=== PATIENT | male | born 1995 | race Caucasian/White ===

== ENCOUNTER 2019-08-13 21:08 | Emergency (ER) | payer OTHER ==
[2019-08-13 21:13] VITALS: BP 135/3; PULSE 73; TEMP 97.8
--- NOTE | 2019-08-13 21:39 | ED ---
General Adult HPI - General Chief complaint: Upper Respiratory Infection Stated complaint: congestion/sinus problems Time Seen by Provider: 08/13/19 21:16 Source: patient Mode of arrival: ambulatory Limitations: no limitations - History of Present Illness Initial comments: Patient is 23-year-old male presenting to the emergency department with Multiple chief complaints. Patient is complaining of a cold sore on her left side of his mouth which has been persistent for several weeks and will not resolve. States he attempted using Abreva with minimal improvement. Patient also complaining of some abdominal discomfort, not pain. He states he does have history of GERD and does drink lots of pop and coffee frequently. He also reports eating late at night typically. Patient is also complaining of an intermittent headache that comes and goes. Patient is also complaining of some sinus congestion that has been persistent over the last 2 weeks. Denies any sinus tenderness. Denies taking medication to alleviate his symptoms. States does not have a primary care physician because he does not have time to establish care. Denies any chest pain shortness of breath cough fevers night sweats or chills. Denies any nausea or vomiting or diarrhea. Denies any testicular pain, swelling, penile pain or swelling. Denies hematuria, hematochezia or melena. Denies sore throat or otalgia. - Related Data Previous Rx's Medication Instructions Recorded Acyclovir [Zovirax] 800 mg PO TID #28 tab 08/13/19 Omeprazole [PriLOSEC] 20 mg PO AC-BRKFST #14 cap 08/13/19 Allergies Allergy/AdvReac Type Severity Reaction Status Date / Time No Known Allergies Allergy Verified 08/13/19 21:13 Review of Systems ROS Statement: Those systems with pertinent positive or pertinent negative responses have been documented in the HPI. ROS Other: All systems not noted in ROS Statement are negative. Past Medical History Past Medical History: No Reported History History of Any Multi-Drug Resistant Organisms: None Reported Past Surgical History: No Surgical Hx Reported Past Psychological History: Anxiety, Depression Smoking Status: Never smoker Past Alcohol Use History: None Reported Past Drug Use History: None Reported General Exam Limitations: no limitations General appearance: alert, in no apparent distress Head exam: Present: atraumatic, normocephalic, normal inspection Eye exam: Present: normal appearance Pupils: Present: normal accommodation ENT exam: Present: normal exam, normal oropharynx (Cold sore on the left corner of the mouth.), mucous membranes moist, TM's normal bilaterally, normal external ear exam Neck exam: Present: normal inspection, full ROM Respiratory exam: Present: normal lung sounds bilaterally Cardiovascular Exam: Present: regular rate, normal rhythm, normal heart sounds GI/Abdominal exam: Present: soft, normal bowel sounds. Absent: distended, tenderness, guarding, rebound, rigid, diminished bowel sounds, hyperactive bowel sounds, hypoactive bowel sounds, organomegaly, mass Extremities exam: Present: normal inspection, full ROM Back exam: Present: normal inspection, full ROM Neurological exam: Present: alert, oriented X3 Psychiatric exam: Present: normal affect, normal mood Skin exam: Present: warm, dry, intact, normal color Course Vital Signs 08/13/19 08/13/19 21:10 21:30 Temperature 97.8 F Pulse Rate 73 Respiratory 20 18 Rate Blood Pressure 135/3 O2 Sat by Pulse 100 Oximetry Medical Decision Making - Medical Decision Making Patient is a 23-year-old male presenting to emergency department with multiple chief complaints. Patient is complaining with sore throat. It does appear to be herpes simplex. Patient has had the lesion there for approximately 2-3 weeks. Patient will be started on acyclovir. Patient is also complaining of some abdominal discomfort after he eats food. Does have history of GERD. Patient does eat very late at night and drinks lots of coffee and pop. Patient advised to avoid any of those habits. He was also prescribed omeprazole in order to help alleviate some of the symptoms. ENT examination is unremarkable. Patient does not have any sinus tenderness. Low suspicion for sinusitis. Patient advised to use [id number] decongestants. Patient advised to establish a relationship with a primary care physician which will be able to manage his chronic conditions better. Return parameters were thoroughly discussed with patient is a worsening and agreeable. Case discussed with physician. Disposition Clinical Impression: Herpes simplex, Abdominal discomfort Disposition: HOME SELF-CARE Condition: Stable Additional Instructions: Take prescribed medication as directed. Return to emergency department if symptoms worsen. Prescriptions: Omeprazole [PriLOSEC] 20 mg PO AC-BRKFST #14 cap Acyclovir [Zovirax] 800 mg PO TID #28 tab Is patient prescribed a controlled substance at d/c from ED?: No Referrals: None,Stated [Primary Care Provider] - 1-2 days Time of Disposition: 21:39
[2019-08-13 21:41] VITALS: RESP 18
== END 2019-08-13 22:39 | disposition home or self-care (01) ==
LOC: EC 21:08
DX: B00.9 Herpesviral infection, unspecified (principal); R10.9 Unspecified abdominal pain; K21.9 Gastro-esophageal reflux disease without esophagitis; R51 Headache; R09.81 Nasal congestion
CPT/HCPCS: 99283

== ENCOUNTER 2019-10-15 10:13 | Emergency (ER) | payer OTHER ==
[2019-10-15] MEDS ORDERED: MORPHINE SULFATE 4 MG/ML SYRINGE IV STA (10:29)
[2019-10-15] MEDS ORDERED: ONDANSETRON 4 MG/2 ML VIAL IVP STA (10:29)
[2019-10-15] MEDS ORDERED: SODIUM CHLORIDE 0.9% 1,000 ML IV STA (10:29)
--- NOTE | 2019-10-15 10:36 | ED ---
Abdominal Pain HPI - General Chief Complaint: Abdominal Pain Stated Complaint: Abdominal pain Time Seen by Provider: 10/15/19 10:20 Source: patient, RN notes reviewed, old records reviewed Mode of arrival: ambulatory Limitations: no limitations - History of Present Illness Initial Comments: 24-year-old male presents emergency department she went right lower quadrant abdominal pain. Patient states pain started 2 days ago. Patient states pain is progressive worsening. He states movement does make the pain worse he's felt nauseated without vomiting had increased stool output but states it's not diarrhea denies any constipation or melena hematochezia. Patient denies fever, chills no prior abdominal surgeries. He doesn't that he's had prior kidney stones and states this is not consistent with his prior kidney stones. Patient states he has no chest pain or shortness breath the pain does wax and wane he currently states pain is 8 out of 10 - Related Data Home Medications Medication Instructions Recorded Confirmed Naproxen Sodium [Aleve] 440 mg PO BID PRN 10/15/19 10/15/19 Previous Rx's Medication Instructions Recorded Dicyclomine [Bentyl] 20 mg PO TID #30 tablet 10/15/19 Allergies Allergy/AdvReac Type Severity Reaction Status Date / Time No Known Allergies Allergy Verified 10/15/19 11:15 Review of Systems ROS Statement: Those systems with pertinent positive or pertinent negative responses have been documented in the HPI. ROS Other: All systems not noted in ROS Statement are negative. Past Medical History Past Medical History: No Reported History History of Any Multi-Drug Resistant Organisms: None Reported Past Surgical History: No Surgical Hx Reported Past Psychological History: Anxiety, Depression Smoking Status: Never smoker Past Alcohol Use History: None Reported Past Drug Use History: None Reported General Exam Limitations: no limitations General appearance: alert, in no apparent distress Head exam: Present: atraumatic, normocephalic, normal inspection Eye exam: Present: normal appearance, PERRL, EOMI. Absent: scleral icterus, conjunctival injection, periorbital swelling ENT exam: Present: normal exam, normal oropharynx, mucous membranes moist Neck exam: Present: normal inspection, full ROM. Absent: tenderness, meningismus, lymphadenopathy Respiratory exam: Present: normal lung sounds bilaterally. Absent: respiratory distress, wheezes, rales, rhonchi, stridor Cardiovascular Exam: Present: regular rate, normal rhythm, normal heart sounds. Absent: systolic murmur, diastolic murmur, rubs, gallop, clicks GI/Abdominal exam: Present: soft, tenderness (Moderate right lower quadrant tenderness), normal bowel sounds. Absent: distended, guarding, rebound, rigid Back exam: Absent: CVA tenderness (R), CVA tenderness (L) Neurological exam: Present: alert, oriented X3, CN II-XII intact Skin exam: Present: warm, dry, intact, normal color. Absent: rash Course Vital Signs 10/15/19 10/15/19 10:15 11:24 Temperature 97.7 F Pulse Rate 94 60 Respiratory 18 18 Rate Blood Pressure 133/77 118/69 O2 Sat by Pulse 99 98 Oximetry Medical Decision Making - Medical Decision Making This a 24-year-old male presented for lower abdominal pain. CT is negative for acute appendicitis. Labs, urinalysis unremarkable this related to enteritis at this time. Patient provided Bentyl, pain control return parameters were discussed. - Lab Data Result diagrams: 10/15/19 10:36 10/15/19 10:36 Lab Results 10/15/19 10/15/19 10/15/19 Range/Units 10:36 10:36 11:05 WBC 6.1 (3.8-10.6) k/uL RBC 5.37 (4.30-5.90) m/uL Hgb 15.3 (13.0-17.5) gm/dL Hct 48.2 (39.0-53.0) % MCV 89.9 (80.0-100.0) fL MCH 28.6 (25.0-35.0) pg MCHC 31.8 (31.0-37.0) g/dL RDW 12.9 (11.5-15.5) % Plt Count 167 (150-450) k/uL Neutrophils % 51 % Lymphocytes % 34 % Monocytes % 7 % Eosinophils % 5 % Basophils % 1 % Neutrophils # 3.1 (1.3-7.7) k/uL Lymphocytes # 2.1 (1.0-4.8) k/uL Monocytes # 0.4 (0-1.0) k/uL Eosinophils # 0.3 (0-0.7) k/uL Basophils # 0.1 (0-0.2) k/uL Sodium 140 (137-145) mmol/L Potassium 4.7 (3.5-5.1) mmol/L Chloride 103 (98-107) mmol/L Carbon Dioxide 29 (22-30) mmol/L Anion Gap 8 mmol/L BUN 15 (9-20) mg/dL Creatinine 0.78 (0.66-1.25) mg/dL Est GFR (CKD-EPI)AfAm >90 (>60 ml/min/1.73 sqM) Est GFR (CKD-EPI)NonAf >90 (>60 ml/min/1.73 sqM) Glucose 93 (74-99) mg/dL Calcium 9.7 (8.4-10.2) mg/dL Total Bilirubin 0.8 (0.2-1.3) mg/dL AST 31 (17-59) U/L ALT 26 (4-49) U/L Alkaline Phosphatase 95 (38-126) U/L Total Protein 8.3 H (6.3-8.2) g/dL Albumin 4.7 (3.5-5.0) g/dL Lipase 65 (23-300) U/L Urine Color Yellow Urine Appearance Clear (Clear) Urine pH 8.0 (5.0-8.0) Ur Specific [place] 1.048 H (1.001-1.035) Urine Protein Negative (Negative) Urine Glucose (UA) Negative (Negative) Urine Ketones Negative (Negative) Urine Blood Negative (Negative) Urine Nitrite Negative (Negative) Urine Bilirubin Negative (Negative) Urine Urobilinogen <2.0 (<2.0) mg/dL Ur Leukocyte Esterase Negative (Negative) Disposition Clinical Impression: Abdominal pain Disposition: HOME SELF-CARE Condition: Stable Instructions (If sedation given, give patient instructions): Abdominal Pain (ED) Additional Instructions: Please return to the Emergency Department if symptoms worsen or any other concerns. Prescriptions: Dicyclomine [Bentyl] 20 mg PO TID #30 tablet Is patient prescribed a controlled substance at d/c from ED?: No Referrals: None,Stated [Primary Care Provider] - 1-2 days Time of Disposition: 12:18
[2019-10-15 10:51] LABS: Basophils # (A) 0.1 k/uL (0-0.2); Basophils % (A) 1 %; Eosinophils # (A) 0.3 k/uL (0-0.7); Eosinophils % (A) 5 %; HCT 48.2 % (39.0-53.0); HGB 15.3 gm/dL (13.0-17.5); Lymphocytes # (A) 2.1 k/uL (1.0-4.8); Lymphocytes % (A) 34 %; MCH 28.6 pg (25.0-35.0); MCHC 31.8 g/dL (31.0-37.0); MCV 89.9 fL (80.0-100.0); Monocytes # (A) 0.4 k/uL (0-1.0); Monocytes % (A) 7 %; Neutrophils # (A) 3.1 k/uL (1.3-7.7); Neutrophils % (A) 51 %; Platelet Count 167 k/uL (150-450); RBC 5.37 m/uL (4.30-5.90); RDW 12.9 % (11.5-15.5); WBC 6.1 k/uL (3.8-10.6)
[2019-10-15 11:00] LABS: ALT 26 U/L (4-49); AST 31 U/L (17-59); African American GFR (CKD) >90 (>60 ml/min/1.73 sqM); Albumin 4.7 g/dL (3.5-5.0); Alkaline Phosphatase 95 U/L (38-126); Anion Gap 8 mmol/L; Blood Urea Nitrogen 15 mg/dL (9-20); Calcium 9.7 mg/dL (8.4-10.2); Carbon Dioxide 29 mmol/L (22-30); Chloride 103 mmol/L (98-107); Glucose 93 mg/dL (74-99); Non-African American GFR(CKD) >90 (>60 ml/min/1.73 sqM); Potassium 4.7 mmol/L (3.5-5.1); Sodium 140 mmol/L (137-145); Total Bilirubin 0.8 mg/dL (0.2-1.3); Total Protein 8.3 g/dL (6.3-8.2)
[2019-10-15 11:20] LABS: Appearance,Urine Clear (Clear); Bilirubin,Urine Negative (Negative); Blood,Urine Negative (Negative); Color,Urine Yellow; Glucose,Urine (UA) Negative (Negative); Ketones,Urine Negative (Negative); Leukocyte Esterase,Urine Negative (Negative); Nitrite,Urine Negative (Negative); Protein,Urine Negative (Negative); Urobilinogen,Urine <2.0 mg/dL (<2.0)
--- NOTE | 2019-10-15 11:21 | CT ---
EXAMINATION TYPE: CT abdomen pelvis w con DATE OF EXAM: 10/15/2019 COMPARISON: None. HISTORY: RLQ pain CT DLP: 504 mGycm, Automated Exposure Control for Dose Reduction was Utilized. CONTRAST: CT scan of the abdomen and pelvis is performed without oral but with IV Contrast, patient injected wi th 100 ml mL of Isovue 370. FINDINGS: LUNG BASES: No significant abnormality is appreciated. LIVER/GB: No significant abnormality is appreciated. PANCREAS: Some fullness in the distal pancreatic body without surrounding inflammatory change perhaps normal variant. SPLEEN: No significant abnormality is seen. ADRENALS: No significant abnormality is seen. KIDNEYS: Symmetric cortical medullary uptake and excretion without hydronephrosis seen bilaterally. BOWEL:. Suboptimal evaluation of bowel without enteric contrast and patient having little intra-abdom inal fat. No suspicious small or large bowel dilatation. Low-lying cecum into the right pelvis. Appen pedro felt within normal limits ascending from the cecum coronal image 45. Few small bowel loops in the lower abdomen are slightly more prominent measuring up to 2.2 cm in diameter PROSTATE/SEMINAL VESICLES: No gross abnormality seen. LYMPH NODES: No greater than 1cm abdominal or pelvic lymph nodes are appreciated. OSSEOUS STRUCTURES: No significant abnormality is seen. OTHER: No significant additional abnormality is seen. IMPRESSION: No CT evidence for acute appendicitis. Overall nonspecific but favor a nonobstructive bow el gas pattern. No acute finding clearly seen.
[2019-10-15 11:50] LABS: Specific Gravity,Urine 1.048 (1.001-1.035)
[2019-10-15] MEDS ORDERED: ACET/COD 300 MG/30 MG STARTER PACK 6 TAB BTL PO STA (12:19)
[2019-10-15 12:57] VITALS: BP 120/63; PULSE 63; RESP 16; TEMP 98.4
== END 2019-10-15 12:50 | disposition home or self-care (01) ==
LOC: EC 10:13
DX: R10.31 Right lower quadrant pain (principal); R10.813 Right lower quadrant abdominal tenderness
CPT/HCPCS: 36415; 80053; 83690; 85025; 81003; 74177; 99284; 96374; 96375; 96361 ×2; J2270; J2405; Q9967